=== PATIENT | female | born 1950 | race Caucasian/White ===

== ENCOUNTER 2017-11-13 12:41 | Outpatient (CLI) | payer MEDICARE, BC | END 2017-11-13 12:42 | disposition home or self-care (01) | LOC: LAB.F 12:41 | PROVIDERS: ATTEND Internal Medicine | DX: E03.9 Hypothyroidism, unspecified (principal) | CPT/HCPCS: 36415; 84443 ==

== ENCOUNTER 2017-11-24 14:24 | Outpatient (CLI) | payer MEDICARE, BC ==
--- NOTE | 2017-11-24 16:14 | Ultrasound Report ---
THYROID ULTRASOUND: 11/24/2017 COMPARISON: 06/21/2010. INDICATION: Followup thyroid nodule. TECHNIQUE: Sonographic evaluation of the thyroid was performed. FINDINGS: There is a 7 mm hypoechoic solid nodule in the lower pole of the right thyroid. No other nodules are demonstrated. Background vascularity of the thyroid is normal. RIGHT LOBE: 4.2 x 1.1 x 1.2 cm, volume 3 mL LEFT LOBE: 3.8 x 1.2 x 1.0 cm, volume 2 mL Isthmus 3 mm. No lymphadenopathy. IMPRESSION: STABLE SUBCENTIMETER RIGHT THYROID NODULE. TD: 11/24/2017 16:13 FARSHAD
--- NOTE | 2017-11-25 16:57 | DEXA Report ---
INDICATION DEXA SCAN: 11/24/2017 INDICATION: [TIME: 00:11] TECHNIQUE: Dual energy x-ray absorptiometry (DXA) was performed on a 36Kr system. Regions measured are the AP spine, femoral neck, and, if needed, forearm. COMPARISON: None. In accordance with the International Society for Clinical Densitometry (ISCD) guidelines, data from previous exams may be reanalyzed using current recommendations and techniques. This is done to allow a more accurate basis for comparison with the current study. FINDINGS The data for the lumbar spine is as follows: REGION BMD (g/cm/cm) T-SCORE Z-SCORE L1 0.906 -1.9 -0.3 L2 0.827 -3.1 -1.6 L3 0.910 -2.4 -0.9 L4 0.852 -2.9 -1.4 L3-L4 0.879 -2.7 -1.2 NOTE: L3-L4 are used for spine evaluation. T score is -2.7. The data for the hip is as follows: REGION BMD (g/cm/cm) T-SCORE Z-SCORE Neck 1.046 0.1 1.5 TOTAL 0.970 -0.3 0.9 NOTE: The femoral neck or total proximal femur, whichever is lowest, is used for classification. IMPRESSION USE L3-L4 FROM TABLE. WHO CLASSIFICATION BASED ON THE INTERNATIONAL REFERENCE STANDARD OF THE FEMORAL NECK IS NORMAL. WHO CLASSIFICATION BASED ON THE INTERNATIONAL REFERENCE STANDARD OF THE LUMBAR SPINE IS OSTEOPOROSIS. FRACTURE RISK IS HIGH. RECOMMENDATION: Patients with diagnosis of osteoporosis or osteopenia should have regular bone mineral density assessment. For those eligible for Medicare, routine testing is allowed once every 2 years. Testing frequency can be increased for patients who have rapidly progressing disease or for those who are receiving medical therapy to restore bone mass. COMMENT World Health Organization (WHO) definitions for osteoporosis and osteopenia: NORMAL BMD: T-score at 1.0 or higher, fracture risk is low. OSTEOPENIA BMD: T-score between 1.0 and -2.5, fracture risk is increased. OSTEOPOROSIS BMD: T-score at 2.5 or lower, fracture risk high. National Osteoporosis Foundation recommends: 1. Obtain adequate dietary calcium (at least 1200 mg per day) and vitamin D (400 -800 international units per day). 2. Participate, as appropriate, in regular weightbearing and muscle- strengthening exercise. 3. Avoid tobacco use and reduce alcohol and caffeine intake. 4. For more detailed information see the website at www.NOF.org. TD: 11/25/2017 09:49 FARSHAD
== END 2017-11-24 14:25 | disposition home or self-care (01) ==
LOC: DI 14:24
PROVIDERS: ATTEND Internal Medicine
DX: M81.0 Age-related osteoporosis without current pathological fracture (principal); E04.1 Nontoxic single thyroid nodule
CPT/HCPCS: 76536; 77080

== ENCOUNTER 2019-01-11 16:43 | Outpatient (CLI) | payer MEDICARE, BC | END 2019-01-11 16:44 | disposition home or self-care (01) | LOC: LAB 16:43 | PROVIDERS: ATTEND Internal Medicine | DX: E04.1 Nontoxic single thyroid nodule (principal) | CPT/HCPCS: 36415; 84443 ==

== ENCOUNTER 2021-02-20 14:42 | Outpatient (CLI) | payer MEDICARE, BC ==
[2021-02-20 15:07] LABS: CALCIUM 9.9 mg/dL (8.5-10.3); CREATININE 0.5 mg/dL (0.4-1.0); POTASSIUM 3.8 mmol/L (3.5-5.0)
[2021-02-20 15:25] LABS: THYROID STIMULATING HORMONE 2.23 uIU/mL (0.34-5.60)
== END 2021-02-20 14:43 | disposition home or self-care (01) ==
LOC: LAB 14:42
PROVIDERS: ATTEND Internal Medicine
DX: E03.9 Hypothyroidism, unspecified (principal); M81.0 Age-related osteoporosis without current pathological fracture
CPT/HCPCS: 36415; 80048; 82306; 84443

== ENCOUNTER 2023-07-02 13:33 | Emergency (ER) | payer MEDICARE, BC ==
[2023-07-02 14:13] LABS: BASOPHILS # (AUTO) 0.1 10^3/uL (0.0-0.1); BASOPHILS % (AUTO) 0.8 %; EOSINOPHILS # (AUTO) 0.3 10^3/uL (0.0-0.7); EOSINOPHILS % (AUTO) 3.2 %; HCT - HEMATOCRIT 41.2 % (37.0-47.0); HGB - HEMOGLOBIN 13.6 g/dL (12.0-16.0); LYMPHOCYTES # (AUTO) 2.2 10^3/uL (1.5-3.5); LYMPHOCYTES % (AUTO) 27.9 %; MEAN CORPUSCULAR HEMOGLOBIN 30.9 pg (27.0-31.0); MEAN CORPUSCULAR VOLUME 93.6 fL (81.0-99.0); MEAN PLATELET VOLUME 9.4 fL (7.9-10.8); MONOCYTES # (AUTO) 0.6 10^3/uL (0.0-1.0); NEUTROPHILS # (AUTO) 4.8 10^3/uL (1.5-6.6); NEUTROPHILS % (AUTO) 60.8 %; PLT - PLATELET COUNT 301 10^3/uL (130-450); RED CELL DISTRIBUTION WIDTH 13.6 % (12.0-15.0); WHITE BLOOD COUNT 7.9 x10^3/uL (4.8-10.8)
[2023-07-02 14:26] LABS: ALBUMIN 4.7 g/dL (3.2-5.5); ALBUMIN/GLOBULIN RATIO 1.7 (1.0-2.2); BILIRUBIN,TOTAL 0.5 mg/dL (0.2-1.0); CALCIUM 10.1 mg/dL (8.5-10.3); CREATININE 0.8 mg/dL (0.6-1.3); POTASSIUM 3.8 mmol/L (3.5-4.5); TOTAL PROTEIN 7.5 g/dL (6.4-8.9)
--- NOTE | 2023-07-02 16:36 | ED Physician Documentation ---
PD HPI FOCAL NEURO - Stated complaint Stated Complaint: FAINTING FEELING - Chief complaint Chief Complaint: Neuro - History obtained from History obtained from: Patient - Additional information Additional information: 73-year-old woman with history of hypothyroidism and chronic neuropathic leg pain on gabapentin was in her usual state of health this morning about 10:20 AM when she developed an out of body experience lasting about 30 seconds. She felt like she could not control anything and she was presyncopal without full syncope. Subsequently developed left chest pain and a more significant left neck pain and global headache. She feels like she has to hold onto the cornejo and is unsteady walking and notes intermittent horizontal diplopia. declines anything for the headache at this juncture. PD PAST MEDICAL HISTORY - Past Medical History Cardiovascular: None Respiratory: None Endocrine/Autoimmune: Other GI: Other DOG WARDEN: None : None HEENT: Chronic vision loss Psych: Depression, Post traumatic stress disorder Musculoskeletal: Osteoarthritis, Chronic back pain Derm: Psoriasis - Past Surgical History Past Surgical History: Yes General: Cholecystectomy, Appendectomy /DOG WARDEN: Other - Present Medications Home Medications: Ambulatory Orders Medication Instructions Recorded Confirmed Amoxicillin [Amoxil] 500 mg PO Q6H 10 Days capsule 10/01/15 FLUoxetine [PROzac] 40 mg PO DAILY 10/01/15 10/01/15 Gabapentin [Neurontin] 1,500 mg PO DAILY 10/01/15 10/01/15 Levothyroxine [Synthroid] 25 mcg PO QDAC 10/01/15 10/01/15 Naproxen 250 mg PO DAILY PRN 10/01/15 10/01/15 - Allergies Allergies/Adverse Reactions: Allergies Allergy/AdvReac Type Severity Reaction Status Date / Time latex Allergy Edema Verified 10/01/15 09:50 aspirin AdvReac Unknown Verified 10/01/15 09:50 ibuprofen AdvReac Nausea Verified 10/01/15 09:50 meperidine HCl * AdvReac Nausea Verified 10/01/15 09:50 [From Demerol] morphine AdvReac Nausea Verified 10/01/15 09:50 propoxyphene HCl * AdvReac Nausea Verified 10/01/15 09:50 [From Darvon] Prophyria-all meds have to Allergy Unknown Uncoded 10/01/15 10:04 clear. narcotics AdvReac Nausea Uncoded 10/01/15 09:50 - Social History Does the pt smoke?: No Smoking Status: Never smoker Does the pt drink ETOH?: No Does the pt have substance abuse?: No - Immunizations Immunizations are current?: Yes PD ED PE NORMAL - Vitals Vital signs reviewed: Yes - General General: Alert and oriented X 3, No acute distress - HEENT HEENT: PERRL, EOMI, Other (Possible mild left facial droop) - Neck Neck: Supple, no meningeal sign, No bony TTP - Cardiac Cardiac: RRR, No murmur - Respiratory Respiratory: No respiratory distress, Clear bilaterally - Abdomen Abdomen: Non tender - Derm Derm: Normal color, Warm and dry - Neuro Neuro: Alert and oriented X 3, No sensory deficit, Other (Ataxia on left-sided finger-nose testing. Unable to raise the left leg off the bed but she says that is chronic.) Eye Opening: Spontaneous Motor: Obeys Commands Verbal: Oriented GCS Score: 15 Results - Vitals Vitals: Vital Signs - 24 hr 07/02/23 07/02/23 07/02/23 13:47 16:21 16:34 Temperature 36.0 C L Heart Rate 69 Respiratory 20 18 16 Rate Blood Pressure 177/69 H O2 Saturation 98 07/02/23 07/02/23 07/02/23 17:31 19:20 19:30 Temperature Heart Rate 65 64 65 Respiratory 18 17 16 Rate Blood Pressure 151/80 H 156/75 H 156/75 H O2 Saturation 97 100 100 Oxygen O2 Source Room air - EKG (time done) 1359 EKG releavant findings:: EKG personally interpreted by author of this note. Relevant findings are: Rate: Rate (enter#) (65) Rhythm: NSR [place]: Normal Intervals: Normal [place] QRS: Normal Ischemia: Normal ST segments - Labs Labs: Laboratory Tests 07/02/23 07/02/23 07/02/23 14:07 14:07 16:43 WBC 7.9 RBC 4.40 Hgb 13.6 Hct 41.2 MCV 93.6 MCH 30.9 MCHC 33.0 RDW 13.6 Plt Count 301 MPV 9.4 Neut # (Auto) 4.8 Lymph # (Auto) 2.2 [place] # (Auto) 0.6 Eos # (Auto) 0.3 Baso # (Auto) 0.1 Absolute Nucleated RBC 0.00 Nucleated RBC % 0.0 Sodium 142 Potassium 3.8 Chloride 104 Carbon Dioxide 32 Anion Gap 6.0 BUN 19 Creatinine 0.8 Estimated GFR (MDRD) 71 L Glucose 99 Calcium 10.1 Total Bilirubin 0.5 AST 19 ALT 16 Alkaline Phosphatase 64 Troponin I High Sens 9.6 Total Protein 7.5 Albumin 4.7 Globulin 2.8 Albumin/Globulin Ratio 1.7 Lipase 34 - Rads (name of study) CT angiography of the head and neck showing mild plaquing and moderate left intradural vertebral stenosis without LVO aneurysm or malformation Relevant Findings:: Final report received, EMP independent interpretation of test PD Medical Decision Making - ED course ED course: 73-year-old woman had an episode of 30 seconds this morning hard to describe with an out of body experience and she could not control anything in which she was presyncopal and since then has had left neck pain, headache, diplopia, and ataxia. Differential diagnosis would include carotid or vertebral dissection, stroke, mass lesion in the brain. Doubt dissection as the chest pain was mild. ACS would be atypical. CBC, CMP, and troponin normal/negative. Given the neurologic symptoms she was sent for angiography of the head and neck and MRI of the head. The MRI of the head was normal for age, CTA of the head and neck showed a vertebral artery stenosis with otherwise mild plaquing throughout. She has a "allergy" to aspirin. Stating that at age 20 she would either vomit with it or lose her vision. I am not sure this represents a true allergy and given the finding of the stenosis recommended she at least trial baby aspirin. Also to follow-up with her physician for consideration for cardiac monitoring and further testing, possibly neurologic referral. I offered to give her an aspirin here and observe her but she would prefer to trial at home. Departure - Departure Disposition: Home, Self Care Clinical Impression: Vertigo, Ataxia Chest pain Qualifiers: Chest pain type: unspecified Qualified Code(s): R07.9 - Chest pain, unspecified Condition: Good Record reviewed to determine appropriate education?: Yes Instructions: ED Vertigo Unspecified Comments: Rest assured that the MRI of your brain showed only age-appropriate findings, nothing acute to suggest stroke or mass. The angiography studies demonstrated some mild plaquing throughout and a single left intradural vertebral artery stenosis. Recommend baby aspirin a day, noting it your prior allergy may not have been a true allergy but do take it with caution. Follow-up with your primary care physician, consider further evaluation and treatment, consider neurologic referral. Return if worse. Forms: PCP List
[2023-07-02] MEDS ORDERED: GADOTERATE MEGLUMINE 10 MMOL/20 ML VIAL ONE (18:39)
[2023-07-02] MEDS ORDERED: GADOTERATE MEGLUMINE 10 MMOL/20 ML VIAL IVP ONE (18:45)
--- NOTE | 2023-07-02 19:06 | CT Report ---
PROCEDURE: CT Angio Head/Neck INDICATIONS: Ataxia, diplopia, headache, Left neck pain TECHNIQUE: Helical axial CT of the head and neck was obtained during the arterial phase of a intrave nous contrast injection utilizing an angiographic protocol. Multiplanar traditional and MIP reformat s were also obtained. COMPLIANCE STATEMENTS: Any estimate of proximal ICA stenosis was calculated using NASCET guidelines. Dose reduction techniques included either automated exposure control or adjustment of exposure danielle eters. COMPARISON: None. FINDINGS: Cerebral CT Angiogram: Internal carotid arteries: Atherosclerotic vascular calcification noted in the cavernous segments of both ICA without significant stenosis. No aneurysm. Anterior cerebral arteries: Unremarkable. No significant stenosis. No occlusion. No aneurysm. Middle cerebral arteries: Unremarkable. No significant stenosis. No occlusion. No aneurysm. Posterior cerebral arteries: Unremarkable. No significant stenosis. No occlusion. No aneurysm. Basilar artery: Unremarkable. No significant stenosis. No occlusion. No aneurysm. Vertebral arteries: Atherosclerotic calcification associated with moderate stenosis of the left intra dural vertebral artery. Right vertebral artery widely patent. Codominant Dural venous sinuses: Unremarkable given phase of enhancement. Other: Arterial phase appearance of the brain parenchyma is unremarkable. Neck CT Angiogram: Internal carotid arteries: Unremarkable. No significant stenosis. No dissection or occlusion. Common carotid arteries: Unremarkable. No significant stenosis. No dissection or occlusion. External carotid arteries: Unremarkable. No occlusion. Vertebral arteries: Unremarkable. No significant stenosis. No dissection or occlusion. Aortic Arch and Mediastinum: Partially visualized aortic arch unremarkable without evidence of aneury sm. Incidental retroesophageal aberrant right subclavian artery, an anatomic variant Other: Arterial phase soft tissues of the neck are unremarkable. IMPRESSION: Mild atherosclerotic plaque without evidence of large vessel occlusion, aneurysm or vascular malforma tion. Moderate left intradural vertebral artery stenosis. Reviewed by: Danish Martinez MD on 07/02/2023 6:05 PM BREANNA Approved by: Danish Martinez MD on 07/02/2023 6:05 PM [facility] Station ID: [id number]
[2023-07-02 19:26] VITALS: BP 156/75; O2SAT 100
[2023-07-02] MEDS ORDERED: iohexoL-300 100 ML VIAL IVP ONE (20:16)
--- NOTE | 2023-07-02 20:41 | MRI Report ---
PROCEDURE: BRAIN W/WO INDICATIONS: Ataxia, diplopia, headache, Left neck pain CONTRAST: Clariscan 13ml TECHNIQUE: Noncontrast axial T1 spin echo, axial T2 fast spin echo, sagittal and axial FLAIR, coronal T2 fast sp in echo, axial gradient echo, axial diffusion and ADC through the brain. After the administration of contrast, axial and coronal T1 spin echo with fat saturation through the brain. COMPARISON: CTA head neck are clear today. MRI brain 02/21/2016. FINDINGS: Image quality: Excellent. CSF spaces: Basal cisterns are patent. No extra-axial fluid collections. Ventricles are normal in size and shape. Brain: No midline shift. No intracranial bleeds or masses. No abnormal intracranial enhancement. P eriventricular FLAIR signal hyperintense signal is consistent with chronic microvascular ischemic dis ease. There is cerebral volume loss for age. There is periventricular white matter chronic small ves hipolito ischemic change. The brainstem appears normal. Diffusion-weighted images demonstrate no acute i schemic insults. No chronic ischemic insults. Normal intravascular flow voids are present. Skull and face: Calvarial marrow is normal in signal. Orbits appear normal. Sinuses: Sinuses and mastoids appear clear. IMPRESSION: No acute infarct. No enhancing mass. Reviewed by: Greg Brenner MD on 07/02/2023 8:39 PM PDT Approved by: Greg Brenner MD on 07/02/2023 8:39 PM PDT Station ID: [id number]
[2023-07-02] MEDS ORDERED: ASPIRIN CHEW 81 MG TABLET PO STA (20:55)
== END 2023-07-02 21:08 | disposition home or self-care (01) ==
LOC: ED 13:33
DX: R27.0 Ataxia, unspecified (principal); R07.9 Chest pain, unspecified
CPT/HCPCS: 36415; 70496; 70498; 70553; 80053; 83690; 84484; 85025; 93005; 99283; 99284; A9270; A9575; Q9967

== ENCOUNTER 2023-08-13 13:54 | Outpatient (CLI) | payer MEDICARE, BC ==
--- NOTE | 2023-08-13 16:24 | XRAY Report ---
PROCEDURE: Lumbar Spine 2 View INDICATIONS: ACUTE BACK PAIN WITH SCIATICA TECHNIQUE: 3 views of the lumbar spine were acquired. COMPARISON: None. FINDINGS: Bones: 5 [id number] vertebrae are present. There is normal bony alignment. No vertebral body compression fractures. No suspicious bony lesions. Moderate facet arthrosis at L5-S1. Soft tissues: Overlying bowel gas pattern is normal. No suspicious soft tissue calcifications. IMPRESSION: No displaced fracture or traumatic subluxation. No significant degenerative disc disease. Moderate facet arthrosis at L5-S1. Reviewed by: Rashad Layne on 08/13/2023 4:23 PM [facility] Approved by: Rashad Layne on 08/13/2023 4:23 PM [facility] Station ID: [id number]
== END 2023-08-13 13:55 | disposition home or self-care (01) ==
LOC: DI 13:54
PROVIDERS: ATTEND Internal Medicine
DX: M54.42 Lumbago with sciatica, left side (principal); M47.817 Spondylosis without myelopathy or radiculopathy, lumbosacral region

== ENCOUNTER 2023-08-14 11:42 | Outpatient (CLI) | payer MEDICARE, BC ==
--- NOTE | 2023-08-14 13:59 | XRAY Report ---
PROCEDURE: Hip w/Pelvis 1V LT INDICATIONS: PAIN IN LEFT HIP TECHNIQUE: AP pelvis with lateral view(s) of the left hip(s). COMPARISON: None. FINDINGS: Bones: No fractures or dislocations. No suspicious bony lesions. Soft tissues: No suspicious soft tissue calcifications or masses. IMPRESSION: No acute bony abnormality. Reviewed by: Yoselyn Danielson MD on 08/14/2023 1:58 PM PST Approved by: Yoselyn Danielson MD on 08/14/2023 1:58 PM PST Station ID: [id number]
== END 2023-08-14 11:43 | disposition home or self-care (01) ==
LOC: DI 11:42
PROVIDERS: ATTEND Internal Medicine
DX: M25.552 Pain in left hip (principal)

== ENCOUNTER 2024-05-14 08:47 | Outpatient (CLI) | payer MEDICARE, BC ==
[2024-05-14 15:50] LABS: BUN - BLOOD UREA NITROGEN 13 mg/dL (6-20); CALCIUM 9.8 mg/dL (8.5-10.3); CARBON DIOXIDE - CO2 31 mmol/L (21-32); CHLORIDE 103 mmol/L (101-111); CHOL/HDL RATIO 3.1 (<4.4); CHOLESTEROL 191 mg/dL; CREATININE 0.6 mg/dL (0.6-1.3); GFR - MDRD 99 (>89); GLUCOSE 96 mg/dL (74-104); HDL CHOLESTEROL 61 mg/dL; LDL CHOLESTEROL,CALCULATED 116 mg/dL; LDL/HDL RATIO 1.9 (<4.4); POTASSIUM 4.3 mmol/L (3.5-4.5); SODIUM 138 mmol/L (135-145); TRIGLYCERIDES 72 mg/dL; VLDL CHOLESTEROL 14 mg/dL
[2024-05-14 16:06] LABS: THYROID STIMULATING HORMONE 1.78 uIU/mL (0.34-5.60)
== END 2024-05-14 08:48 | disposition home or self-care (01) ==
LOC: LAB.S 08:47
PROVIDERS: ATTEND Internal Medicine
DX: E03.9 Hypothyroidism, unspecified (principal); Z13.220 Encounter for screening for lipoid disorders; Z79.1 Long term (current) use of non-steroidal anti-inflammatories (NSAID)
CPT/HCPCS: 36415; 80048; 80061; 83721; 84443

== ENCOUNTER 2024-05-27 09:34 | Outpatient (CLI) | payer MEDICARE, BC ==
--- NOTE | 2024-05-27 15:22 | Ultrasound Report ---
PROCEDURE: Soft Tissue Head or Neck INDICATIONS: MULTIPLE THYROID NODULES TECHNIQUE: Real-time scanning was performed of the thyroid gland, with image documentation. COMPARISON: Thyroid ultrasound 11/24/2017 FINDINGS: Right: Thyroid lobe measures 4.2 x 1.4 x 1.1 cm. Left: Thyroid lobe measures 3.8 x 1.1 x 1.3 cm Isthmus: 0.2 cm thick. Echotexture: Mildly heterogeneous. There are scattered subcentimeter foci of decreased echogenicity. None meet criteria for continued follow-up. Several were previously present and unchanged. IMPRESSION: Scattered thyroid foci not meeting criteria for follow-up. ACR TI-RADS definitions and recommendations: TI-RADS 1 (benign): 0 points. FNA not needed. TI-RADS 2 (not suspicious): 2 points. FNA not needed. TI-RADS 3 (mildly suspicious): 3 points. "FNA if 2.5 cm or larger, follow up if 1.5 cm or larger (at 1, 3, and 5 years). TI-RADS 4 (moderately suspicious): 4-6 points. "FNA if 1.5 cm or larger, follow up if 1 cm or larger (at 1, 2, 3, and 5 years). TI-RADS 5 (highly suspicious): 7 points or more. "FNA if 1 cm or larger, follow up if 0.5 cm or larger (every year for 5 years). Reviewed by: Sia Barrett MD on 05/27/2024 3:21 PM PDT Approved by: Sia Barrett MD on 05/27/2024 3:21 PM PDT Station ID: [id number]
== END 2024-05-27 09:35 | disposition home or self-care (01) ==
LOC: DI 09:34
PROVIDERS: ATTEND Internal Medicine
DX: E04.2 Nontoxic multinodular goiter (principal)